=== PATIENT | male | born 1960 | race Caucasian/White ===

== ENCOUNTER → 2017-11-24 | Outpatient (REF) | payer OTHER ==
[2017-11-24 12:28] LABS: HEMATOCRIT 47.9 % (42.0-52.0); HEMOGLOBIN 15.9 g/dl (13.5-17.5); MEAN CORPUSCULAR HEMOGLOBIN 29.1 pg (27.0-33.0); MEAN CORPUSCULAR HGB CONC 33.2 g/dl (32.0-36.5); MEAN CORPUSCULAR VOLUME 87.6 fl (80.0-96.0); PLATELET COUNT, AUTOMATED 263 10^3/uL (150-450); RED BLOOD COUNT 5.47 10^6/uL (4.30-6.10); RED CELL DISTRIBUTION WIDTH 12.4 % (11.5-14.5); WHITE BLOOD COUNT 6.2 10^3/uL (4.0-10.0)
[2017-11-24 13:37] LABS: ALBUMIN 4.1 GM/DL (3.2-5.2); ALBUMIN/GLOBULIN RATIO 1.41 (1.00-1.93); ALKALINE PHOSPHATASE 83 U/L (45-117); ALT/SGPT 20 U/L (12-78); ANION GAP 8 MEQ/L (8-16); AST/SGOT 10 U/L (7-37); BILIRUBIN,TOTAL 0.8 MG/DL (0.2-1.0); BLOOD UREA NITROGEN 13 MG/DL (7-18); CALCIUM LEVEL 9.5 MG/DL (8.5-10.1); CARBON DIOXIDE LEVEL 27 MEQ/L (21-32); CHLORIDE LEVEL 109 MEQ/L (98-107); CHOLESTEROL LEVEL 167 MG/DL (<200); CHOLESTEROL RISK RATIO 4.513 (<5); CREATININE FOR GFR 0.82 MG/DL (0.70-1.30); FREE T4 0.98 NG/DL (0.76-1.46); GLOMERULAR FILTRATION RATE > 60.0 (>56); GLUCOSE, FASTING 99 MG/DL (70-100); HDL CHOLESTEROL 37 MG/DL (>40); LDL CHOLESTEROL 98 MG/DL (<100); NON-HDL-C 130 MG/DL; POTASSIUM SERUM 4.3 MEQ/L (3.5-5.1); PSA SCREENING 6.75 NG/ML (< 4.0); SODIUM LEVEL 144 MEQ/L (136-145); TRIGLYCERIDES LEVEL 158 MG/DL (<150)
== END ==
LOC: M SFHCPLAZ 09:25
DX: Z13.220 Encounter for screening for lipoid disorders (principal); Z12.5 Encounter for screening for malignant neoplasm of prostate

== ENCOUNTER → 2017-12-05 | Outpatient (REF) | payer OTHER | LOC: M SMT 13:28 | DX: R97.20 Elevated prostate specific antigen [PSA] (principal) ==

== ENCOUNTER → 2018-10-17 | Outpatient (REF) | payer MEDICAID ==
[~2018-10-17] MED LIST: ATOR1TAB19 PO; CHLO125TA PO; LISI-538 PO
[2018-10-17 18:01] LABS: ALBUMIN 3.7 GM/DL (3.2-5.2); ALT/SGPT 26 U/L (12-78); BILIRUBIN,TOTAL 0.7 MG/DL (0.2-1.0); BLOOD UREA NITROGEN 10 MG/DL (7-18); CALCIUM LEVEL 9.2 MG/DL (8.5-10.1); CARBON DIOXIDE LEVEL 33 MEQ/L (21-32); CHLORIDE LEVEL 107 MEQ/L (98-107); CHOLESTEROL LEVEL 213 MG/DL (<200); CHOLESTEROL RISK RATIO 6.264 (<5); CREATININE FOR GFR 0.92 MG/DL (0.70-1.30); FREE T4 0.94 NG/DL (0.76-1.46); GLOMERULAR FILTRATION RATE > 60.0 (>56); GLUCOSE, FASTING 84 MG/DL (70-100); HDL CHOLESTEROL 34 MG/DL (>40); LDL CHOLESTEROL 126 MG/DL (<100); NON-HDL-C 179 MG/DL; POTASSIUM SERUM 4.1 MEQ/L (3.5-5.1); SODIUM LEVEL 142 MEQ/L (136-145); THYROID STIMULATING HORMONE 0.864 uIU/ML (0.358-3.740); TOTAL PROTEIN 6.8 GM/DL (6.4-8.2); TRIGLYCERIDES LEVEL 264 MG/DL (<150)
[2018-10-17 18:05] LABS: BASO # 0.1 10^3/uL (0.0-0.2); BASO % 1.1 % (0.0-1.0); EOS # 0.2 10^3/uL (0.0-0.50); EOS % 1.9 % (0.0-3.0); HEMATOCRIT 46.3 % (42.0-52.0); HEMOGLOBIN 14.9 g/dl (13.5-17.5); LYMPH # 2.6 10^3/uL (1.5-4.5); LYMPH % 31.3 % (24.0-44.0); MEAN CORPUSCULAR HEMOGLOBIN 28.7 pg (27.0-33.0); MEAN CORPUSCULAR HGB CONC 32.2 g/dl (32.0-36.5); MEAN CORPUSCULAR VOLUME 89.2 fl (80.0-96.0); MONO # 0.6 10^3/uL (0.0-0.8); MONO % 7.6 % (0.0-5.0); NEUTROPHILS # 4.7 10^3/uL (1.8-7.7); NEUTROPHILS % 57.6 % (36.0-66.0); PLATELET COUNT, AUTOMATED 281 10^3/uL (150-450); RED BLOOD COUNT 5.19 10^6/uL (4.30-6.10); WHITE BLOOD COUNT 8.2 10^3/uL (4.0-10.0)
[2018-10-17 18:37] LABS: HEMOGLOBIN A1c 5.6 %
[2018-10-19 14:50] LABS: PSA % FREE 16.4 % (.); PSA FREE 0.87 ng/mL; PSA TOTAL 5.3 ng/mL (0.0-4.0)
== END ==
LOC: M SFHCPLAZ 13:30
PROVIDERS: ATTEND Nurse Practitioner Family
DX: I10 Essential (primary) hypertension (principal); E78.5 Hyperlipidemia, unspecified; R97.20 Elevated prostate specific antigen [PSA]

== ENCOUNTER → 2018-11-27 | Outpatient (CLI) | payer OTHER ==
--- NOTE | 2018-11-27 10:16 | REP ---
REASON: Tobacco abuse. COMPARISON: None. As per the protocol, only lung window images were sent to the reading station for interpretation. There are no priors for comparison. Lung rose are hyperexpanded. Tiny scattered parenchymal bulla are seen bilaterally. A few asymmetric curvilinear bibasilar densities are noted. There are multiple incidental calcified granulomas bilaterally. There are no abnormal noncalcified nodules. There is evidence of early bibasilar cylindrical bronchiectasis. Grossly the mediastinum and pulmonary darnell are within normal limits. Calcified mediastinal and hilar lymph nodes are present. Grossly the imaged upper abdomen and imaged osseous structures are within normal limits. There are no pleural or pericardial effusions. IMPRESSION: 1. Lung RADS category I. As per the revised Fleischner Society criteria, yearly CT lung screening is recommended. 2. Emphysematous changes and other chronic changes as described above. Electronically Signed by Manuel Gallo DO 11/27/2018 02:36 P
== END ==
LOC: M RAD 08:59
PROVIDERS: ATTEND Nurse Practitioner Family
DX: Z12.2 Encounter for screening for malignant neoplasm of respiratory organs (principal); Z87.891 Personal history of nicotine dependence

== ENCOUNTER 2024-05-09 19:15 | Inpatient (IN) | payer MEDICAID, OTHER, SELFPAY ==
[~2024-05-09] VITALS: Ht 170.2 cm; Wt 65.5 kg
[~2024-05-09 19:15] MED LIST changes: -LISI-538 PO; +LISI20TA33 PO
[2024-05-09 19:55] LABS: BASO % 0.3 % (0.0-1.0); EOS % 0.1 % (0.0-3.0); HEMATOCRIT 46.8 % (42.0-52.0); HEMOGLOBIN 15.5 g/dl (13.5-17.5); LYMPH # 1.6 10^3/uL (1.5-5.0); LYMPH % 11.4 % (24.0-44.0); MEAN CORPUSCULAR HEMOGLOBIN 27.3 pg (27.0-33.0); MEAN CORPUSCULAR HGB CONC 33.1 g/dl (32.0-36.5); MEAN CORPUSCULAR VOLUME 82.4 fl (80.0-96.0); MONO % 6.8 % (2.0-8.0); NEUTROPHILS # 11.2 10^3/uL (1.5-8.5); NEUTROPHILS % 80.9 % (36.0-66.0); PLATELET COUNT, AUTOMATED 296 10^3/uL (150-450); RED BLOOD COUNT 5.68 10^6/uL (4.30-6.10); WHITE BLOOD COUNT 13.9 10^3/uL (4.0-10.0)
[2024-05-09 20:08] LABS: ALKALINE PHOSPHATASE 98 U/L (40-129); ALT/SGPT 19 U/L (7.0-40); AST/SGOT 12 U/L (<34); BILIRUBIN,DIRECT 0.4 MG/DL (<0.4); BILIRUBIN,TOTAL 1.5 MG/DL (0.3-1.2); BLOOD UREA NITROGEN 16 MG/DL (9-23); CALCIUM LEVEL 9.4 MG/DL (8.3-10.6); CARBON DIOXIDE LEVEL 27 MMOL/L (20-31); CHLORIDE LEVEL 102 MMOL/L (98-107); CREATININE FOR GFR 0.98 MG/DL (0.70-1.30); GLOMERULAR FILTRATION RATE > 60.0 (>49); GLUCOSE, FASTING 122 MG/DL (74-106); POTASSIUM SERUM 3.7 MMOL/L (3.5-5.1); SODIUM LEVEL 140 MMOL/L (136-145); TOTAL PROTEIN 7.4 G/DL (5.7-8.2)
[2024-05-09 20:10] LABS: THYROID STIMULATING HORMONE 0.603 uIU/ML (0.55-4.78)
[2024-05-09] MEDS: MIDAZOLAM INJ 2MG/2ML VIAL IV STA (20:17)
[2024-05-09] MEDS: CEFEPIME HCL 2 GM in DEXTROSE 5% (D5W) ADV/MINI-BAG 50 ML IV ONE (20:28)
[2024-05-09 20:35] LABS: PROCALCITONIN 0.08 ng/ml
[2024-05-09] MEDS: ACETAMINOPHEN *IV* 1,000 MG in IV 1 EA IV ONE (21:11)
[2024-05-09] MEDS: hydrALAZINE 20MG/ML 1ML VIAL IV STA (21:25)
[2024-05-09] MEDS ORDERED: HOME MED LIST COMPLETE! XX SCH (21:35)
[2024-05-10] MEDS: hydrALAZINE 20MG/ML 1ML VIAL IV STA (01:02)
[2024-05-10] MEDS: MIDAZOLAM 5MG/ML 1ML VIAL IV ONE (01:18)
[2024-05-10] MEDS: MIDAZOLAM INJ 2MG/2ML VIAL IV ONE ×2 (01:28→01:50)
[2024-05-10] MEDS ORDERED: MIDAZOLAM INJ 2MG/2ML VIAL IV ONE (01:40)
[2024-05-10] MEDS ORDERED: propofoL 200 MG/20 ML VIAL IV ONE (01:45)
[2024-05-10] MEDS: propofoL 200 MG/20 ML VIAL IV ONE (01:47)
[2024-05-10 02:53] LABS: KETONE, URINE AUTO RFX NEGATIVE (NEGATIVE); LEUKOCYTE ESTERASE UR AUTO RFX NEGATIVE (NEGATIVE); MUCUS, URINE RFX MODERATE (NEGATIVE); NITRITE, URINE AUTO RFX NEGATIVE (NEGATIVE); RBC, URINE AUTO RFX 53 /HPF (0-3); SQUAM EPITHELIAL CELL UR AURFX 0 /HPF (0-6); TRANSITIONAL EPITHELIAL AU RFX <1 /HPF; WBC, URINE AUTO RFX 5 /HPF (0-3)
[2024-05-10 02:57] LABS: COLOR, CSF PINK (COLORLESS); CSF TUBE# CELL CNT TUBE 1
[2024-05-10 02:58] LABS: APPEARANCE, CSF HAZY (CLEAR)
[2024-05-10 02:59] LABS: APPEARANCE, CSF CLEAR (CLEAR); COLOR, CSF COLORLESS (COLORLESS); CSF TUBE# CELL CNT TUBE 4
[2024-05-10 03:05] LABS: TOTAL PROTEIN,CSF 61.5 MG/DL (15-45)
[2024-05-10 03:24] LABS: CSF TUBE# GLU TUBE 3
[2024-05-10 03:25] LABS: CSF TUBE# TP TUBE 3
[2024-05-10] MEDS ORDERED: FLUID PLACE HOLDER IV SCH (04:05)
[2024-05-10] MEDS ORDERED: FLUID PLACE HOLDER IV ONE (04:05)
[2024-05-10] MEDS ORDERED: MOM 30ML SUSPENSION UDC PO PRN (04:05)
[2024-05-10] MEDS ORDERED: ACYCLOVIR IV SCH (04:05)
[2024-05-10] MEDS ORDERED: VANCOMYCIN HCL IV ONE (04:05)
[2024-05-10] MEDS ORDERED: MEROPENEM INJ 2 GM in NS 100 ML IV SCH (04:05)
[2024-05-10] MEDS: VANCOMYCIN HCL 1,250 MG, VIAL MATE ADAPTER 1 EACH in NS 250 ML IV ONE (05:37)
[2024-05-10] MEDS: dexAMETHasone 20MG/5ML VIAL IV STA (05:37)
[2024-05-10 06:15] LABS: VENOUS BASE EXCESS -1.3 (-2.0-2.0); VENOUS HCO3 22.3 MMOL/L (23.0-27.0); VENOUS O2 SATURATION 87.9 % (60.0-80.0); VENOUS PARTIAL PRESSURE CO2 34.5 mmHg (38.0-50.0); VENOUS PH 7.428 UNITS (7.330-7.430); VENOUS STANDARD HCO3 23.2 MMOL/L; VENOUS TOTAL CO2 23.3 MMOL/L (24.0-28.0)
[2024-05-10 06:26] LABS: HEMATOCRIT 46.4 % (42.0-52.0); HEMOGLOBIN 15.5 g/dl (13.5-17.5); MEAN CORPUSCULAR HEMOGLOBIN 27.8 pg (27.0-33.0); MEAN CORPUSCULAR HGB CONC 33.4 g/dl (32.0-36.5); MEAN CORPUSCULAR VOLUME 83.2 fl (80.0-96.0); PLATELET COUNT, AUTOMATED 256 10^3/uL (150-450); RED BLOOD COUNT 5.58 10^6/uL (4.30-6.10); WHITE BLOOD COUNT 14.8 10^3/uL (4.0-10.0)
[2024-05-10 06:47] LABS: C REACTIVE PROTEIN QUANTITATIV 1.27 MG/DL (<1.0)
[2024-05-10 06:48] LABS: ALKALINE PHOSPHATASE 94 U/L (40-129); ALT/SGPT 19 U/L (7.0-40); AST/SGOT 16 U/L (<34); BILIRUBIN,TOTAL 1.9 MG/DL (0.3-1.2); BLOOD UREA NITROGEN 15 MG/DL (9-23); CALCIUM LEVEL 9.1 MG/DL (8.3-10.6); CARBON DIOXIDE LEVEL 24 MMOL/L (20-31); CHLORIDE LEVEL 103 MMOL/L (98-107); GLOMERULAR FILTRATION RATE > 60.0 (>49); GLUCOSE, FASTING 114 MG/DL (74-106); POTASSIUM SERUM 3.8 MMOL/L (3.5-5.1); SODIUM LEVEL 139 MMOL/L (136-145); TOTAL PROTEIN 7.3 G/DL (5.7-8.2)
[2024-05-10 08:32] LABS: ERYTHROCYTE SEDIMENTATION RATE 17 mm/hr (0-20)
[2024-05-10] MEDS: LORazepam 2 MG/ML 1ML VIAL IV STA (08:44)
[2024-05-10 08:55] VITALS: BP 188/86; TEMP 100.3; O2SAT 96
[2024-05-10] MEDS: ENOXAPARIN 40MG/0.4ML SYRINGE (J1650 PER 10MG) SC SCH (09:04)
[2024-05-10] MEDS: MEROPENEM INJ 1 GM in IV 1 EA IV SCH ×2 (09:05→10:18)
[2024-05-10] MEDS: hydrALAZINE 20MG/ML 1ML VIAL IV PRN (10:18)
[2024-05-10] MEDS ORDERED: ISOVUE-370 76% 100ML VIAL As Ordered ONE (11:09)
[2024-05-10] MEDS: ACYCLOVIR IV SCH (11:39)
[2024-05-10] MEDS: NS IV SCH (11:39)
[2024-05-10 11:46] VITALS: BP 158/72; TEMP 100.1; O2SAT 93
[2024-05-10 12:59] LABS: AMPHETAMINES LEVEL URINE NEGATIVE (NEGATIVE); BARBITURATES URINE NEGATIVE (NEGATIVE); CANNABINOIDS URINE NEGATIVE (NEGATIVE); COCAINE METABOLITE URINE NEGATIVE (NEGATIVE); METHADONE URINE NEGATIVE (NEGATIVE); OPIATES URINE NEGATIVE (NEGATIVE); PHENCYCLIDINE URINE NEGATIVE (NEGATIVE)
[2024-05-10 13:00] LABS: BENZODIAZEPINES URINE POSITIVE (NEGATIVE)
[2024-05-10] MEDS: dexAMETHasone 20MG/5ML VIAL IV SCH (13:09)
[2024-05-10 15:29] VITALS: BP 160/78; TEMP 99.9; O2SAT 94
[2024-05-10 16:29] LABS: HEPATITIS B SURFACE ANTIBODY NEGATIVE (POSITIVE)
[2024-05-10 16:42] LABS: HEPATITIS B SURFACE ANTIGEN NEGATIVE (NEGATIVE)
[2024-05-10 16:55] LABS: HIV 1&2 SCREEN NEGATIVE (NEGATIVE)
[2024-05-10] MEDS ORDERED: VANCOMYCIN HCL 1,000 MG, VIAL MATE ADAPTER 1 EACH in NS 250 ML IV SCH (17:00)
[2024-05-10 17:02] LABS: HEPATITIS C VIRUS ABY INDEX 0.02 INDEX (<0.8)
[2024-05-10] MEDS: ACETAMINOPHEN 325 MG TAB PO PRN (17:14)
[2024-05-10] MEDS: amLODIPine 5 MG TAB PO ONE (17:15)
[2024-05-10] MEDS: NS (Normal Saline) 0.9% 1,000 ML IV SCH (18:35)
[2024-05-10 20:00] VITALS: BP 160/59; TEMP 99.7; O2SAT 91
[2024-05-10 23:35] VITALS: BP 145/65; TEMP 99.1; O2SAT 90
[2024-05-11 04:00] VITALS: BP 176/87; TEMP 97.7; O2SAT 93
[2024-05-11 06:27] LABS: BASO % 0.1 % (0.0-1.0); HEMATOCRIT 42.6 % (42.0-52.0); HEMOGLOBIN 14.3 g/dl (13.5-17.5); LYMPH # 1.3 10^3/uL (1.5-5.0); LYMPH % 8.2 % (24.0-44.0); MEAN CORPUSCULAR HEMOGLOBIN 27.6 pg (27.0-33.0); MEAN CORPUSCULAR HGB CONC 33.6 g/dl (32.0-36.5); MEAN CORPUSCULAR VOLUME 82.1 fl (80.0-96.0); MONO # 0.6 10^3/uL (0.0-0.8); MONO % 3.9 % (2.0-8.0); NEUTROPHILS # 14.2 10^3/uL (1.5-8.5); PLATELET COUNT, AUTOMATED 257 10^3/uL (150-450); RED BLOOD COUNT 5.19 10^6/uL (4.30-6.10); WHITE BLOOD COUNT 16.3 10^3/uL (4.0-10.0)
[2024-05-11 07:09] LABS: BLOOD UREA NITROGEN 26 MG/DL (9-23); CALCIUM LEVEL 8.8 MG/DL (8.3-10.6); CARBON DIOXIDE LEVEL 24 MMOL/L (20-31); CHLORIDE LEVEL 106 MMOL/L (98-107); CREATININE FOR GFR 0.82 MG/DL (0.70-1.30); GLOMERULAR FILTRATION RATE > 60.0 (>49); GLUCOSE, FASTING 133 MG/DL (74-106); POTASSIUM SERUM 3.6 MMOL/L (3.5-5.1); SODIUM LEVEL 141 MMOL/L (136-145)
[2024-05-11 08:00] VITALS: BP 186/86; TEMP 98.6; O2SAT 96
[2024-05-11] MEDS: amLODIPine 5 MG TAB PO SCH (09:08)
[2024-05-11] MEDS ORDERED: PROHANCE 279.3MG/ML 15ML VIAL As Ordered ONE (10:39)
[2024-05-11 11:44] VITALS: BP 160/80; TEMP 99.6; O2SAT 96
[2024-05-11] MEDS: CHLORTHALIDONE 25 MG TAB PO ONE (12:24)
[2024-05-11] MEDS ORDERED: LORazepam 2 MG/ML 1ML VIAL IV PRN (13:10)
[2024-05-11 15:46] VITALS: BP 160/84; TEMP 99.6; O2SAT 96
[2024-05-11 20:00] VITALS: BP 125/60; TEMP 98.4; O2SAT 93
[2024-05-11 23:45] VITALS: BP 139/58; TEMP 97.9; O2SAT 92
[2024-05-12 04:25] VITALS: BP 196/97; TEMP 97.6; O2SAT 87
[2024-05-12 05:24] VITALS: BP 121/50
[2024-05-12 06:17] LABS: BASO % 0.1 % (0.0-1.0); HEMATOCRIT 44.9 % (42.0-52.0); HEMOGLOBIN 15.2 g/dl (13.5-17.5); LYMPH # 1.1 10^3/uL (1.5-5.0); LYMPH % 5.3 % (24.0-44.0); MEAN CORPUSCULAR HEMOGLOBIN 27.8 pg (27.0-33.0); MEAN CORPUSCULAR HGB CONC 33.9 g/dl (32.0-36.5); MEAN CORPUSCULAR VOLUME 82.2 fl (80.0-96.0); MONO # 0.9 10^3/uL (0.0-0.8); MONO % 4.5 % (2.0-8.0); PLATELET COUNT, AUTOMATED 293 10^3/uL (150-450); RED BLOOD COUNT 5.46 10^6/uL (4.30-6.10); WHITE BLOOD COUNT 20.2 10^3/uL (4.0-10.0)
[2024-05-12 06:45] LABS: BLOOD UREA NITROGEN 26 MG/DL (9-23); CARBON DIOXIDE LEVEL 24 MMOL/L (20-31); CHLORIDE LEVEL 102 MMOL/L (98-107); CREATININE FOR GFR 0.73 MG/DL (0.70-1.30); GLOMERULAR FILTRATION RATE > 60.0 (>49); GLUCOSE, FASTING 124 MG/DL (74-106); POTASSIUM SERUM 3.4 MMOL/L (3.5-5.1); SODIUM LEVEL 139 MMOL/L (136-145)
[2024-05-12 07:34] VITALS: BP 162/80; TEMP 97.6; O2SAT 92
[2024-05-12] MEDS: CHLORTHALIDONE 25 MG TAB PO SCH (08:31)
[2024-05-12] MEDS: POTASSIUM CHLORIDE 10MEQ SR TABLET PO ONE (09:06)
[2024-05-12 12:45] VITALS: BP 152/63
[2024-05-12 16:00] VITALS: BP 164/80; TEMP 97.6; O2SAT 96
[2024-05-12 19:35] VITALS: BP 171/94; TEMP 98; O2SAT 94
[2024-05-13 00:45] VITALS: BP 152/63
[2024-05-13 03:04] VITALS: BP 168/90; TEMP 97.6; O2SAT 95
[2024-05-13] MEDS: hydrALAZINE 20MG/ML 1ML VIAL IV ONE (05:26)
[2024-05-13 05:45] VITALS: BP 148/86
[2024-05-13 05:53] LABS: BASO % 0.2 % (0.0-1.0); EOS % 0.1 % (0.0-3.0); HEMATOCRIT 47.6 % (42.0-52.0); LYMPH # 3.9 10^3/uL (1.5-5.0); LYMPH % 19.8 % (24.0-44.0); MEAN CORPUSCULAR HEMOGLOBIN 27.8 pg (27.0-33.0); MEAN CORPUSCULAR HGB CONC 33.6 g/dl (32.0-36.5); MEAN CORPUSCULAR VOLUME 82.6 fl (80.0-96.0); MONO # 1.7 10^3/uL (0.0-0.8); MONO % 8.5 % (2.0-8.0); NEUTROPHILS # 13.9 10^3/uL (1.5-8.5); NEUTROPHILS % 70.7 % (36.0-66.0); PLATELET COUNT, AUTOMATED 325 10^3/uL (150-450); RED BLOOD COUNT 5.76 10^6/uL (4.30-6.10); WHITE BLOOD COUNT 19.6 10^3/uL (4.0-10.0)
[2024-05-13 06:19] LABS: BLOOD UREA NITROGEN 34 MG/DL (9-23); CALCIUM LEVEL 9.3 MG/DL (8.3-10.6); CARBON DIOXIDE LEVEL 28 MMOL/L (20-31); CHLORIDE LEVEL 102 MMOL/L (98-107); GLOMERULAR FILTRATION RATE > 60.0 (>49); GLUCOSE, FASTING 91 MG/DL (74-106); POTASSIUM SERUM 3.5 MMOL/L (3.5-5.1); SODIUM LEVEL 140 MMOL/L (136-145)
[2024-05-13 07:51] VITALS: BP 157/81; TEMP 97.9; O2SAT 94
[2024-05-13 08:27] VITALS: BP 157/81
[2024-05-13] MEDS: LOSARTAN 25 MG TAB PO SCH (08:27)
[2024-05-13 11:52] LABS: PROCALCITONIN 0.07 ng/ml
[2024-05-13 15:51] VITALS: BP 135/70; TEMP 97.8; O2SAT 94
[2024-05-13] MEDS ORDERED: CHLO25TA PO (16:12)
[2024-05-13] MEDS ORDERED: NORV5TAB PO (16:13)
[2024-05-13] MEDS ORDERED: LOSA50TA28 PO (16:13)
== END 2024-05-13 17:15 | disposition home or self-care (01) | DRG 49 ==
LOC: EDBD 19:15 → M ED 19:15 → M ED INP 05-10 04:03 → M PCU 05-10 08:39 → M ED INP 05-12 07:53 → M PCU 05-12 08:13
PROVIDERS: ADMIT Internal Medicine; ATTEND Internal Medicine
DX: G04.2 Bacterial meningoencephalitis and meningomyelitis, not elsewhere classified (principal); G93.41 Metabolic encephalopathy; J18.9 Pneumonia, unspecified organism; J44.0 Chronic obstructive pulmonary disease with (acute) lower respiratory infection; R13.10 Dysphagia, unspecified; N28.1 Cyst of kidney, acquired; I10 Essential (primary) hypertension; E78.5 Hyperlipidemia, unspecified; F17.200 Nicotine dependence, unspecified, uncomplicated; I16.9 Hypertensive crisis, unspecified; Z90.49 Acquired absence of other specified parts of digestive tract; Z88.0 Allergy status to penicillin

== ENCOUNTER → 2024-05-27 | Outpatient (REF) | payer MEDICAID ==
[~2024-05-27] MED LIST changes: +CHLO25TA PO; +LOSA50TA28 PO; +NORV5TAB PO
[2024-05-27 18:10] LABS: BLOOD UREA NITROGEN 16 MG/DL (9-23); CALCIUM LEVEL 9.3 MG/DL (8.3-10.6); CARBON DIOXIDE LEVEL 33 MMOL/L (20-31); CHLORIDE LEVEL 98 MMOL/L (98-107); CREATININE FOR GFR 0.97 MG/DL (0.70-1.30); GLOMERULAR FILTRATION RATE > 60.0 (>49); GLUCOSE, FASTING 86 MG/DL (74-106); POTASSIUM SERUM 3.4 MMOL/L (3.5-5.1); SODIUM LEVEL 139 MMOL/L (136-145)
[2024-05-27 18:56] LABS: CREATININE, URINE 263.2 MG/DL; MAU/CREAT RATIO 6.4 MCG/MG (0.0-30.0)
[2024-05-27 19:06] LABS: APPEARANCE, URINE TURBID (CLEAR); BACTERIA, URINE AUTO 3+ (NEGATIVE); BILIRUBIN, URINE AUTO NEGATIVE (NEGATIVE); BLOOD, URINE BLOOD NEGATIVE (NEGATIVE); COLOR, URINE AMBER (YELLOW); GLUCOSE, URINE (UA) AUTO NEGATIVE (NEGATIVE); KETONE, URINE AUTO NEGATIVE (NEGATIVE); LEUKOCYTE ESTERASE, URINE AUTO TRACE (NEGATIVE); MUCUS, URINE LARGE (NEGATIVE); NITRITE, URINE AUTO NEGATIVE (NEGATIVE); PROTEIN, URINE AUTO NEGATIVE (NEGATIVE); RBC, URINE AUTO 2 /HPF (0-3); SPECIFIC GRAVITY URINE AUTO 1.017 (1.002-1.035); SQUAMOUS EPITHELIAL CELL UR AU 0 /HPF (0-6); WBC, URINE AUTO 6 /HPF (0-3)
== END ==
LOC: M LAB REF 17:16
PROVIDERS: ATTEND Pediatrics
DX: R31.29 Other microscopic hematuria (principal); I10 Essential (primary) hypertension

== ENCOUNTER → 2024-09-11 | Outpatient (REF) | payer MEDICAID, OTHER ==
[2024-09-11 14:04] LABS: BACTERIA, URINE AUTO NEGATIVE (NEGATIVE); MUCUS, URINE SMALL (NEGATIVE); RBC, URINE AUTO 1 /HPF (0-3); SQUAMOUS EPITHELIAL CELL UR AU 0 /HPF (0-6); WBC, URINE AUTO 1 /HPF (0-3)
[2024-09-11 14:49] LABS: PSA SCREENING 11.02 NG/ML (< 4.00)
[2024-09-11 14:50] LABS: CALCIUM LEVEL 9.5 MG/DL (8.3-10.6); CARBON DIOXIDE LEVEL 33 MMOL/L (20-31); CHLORIDE LEVEL 99 MMOL/L (98-107); CHOLESTEROL LEVEL 157 MG/DL (<200); CHOLESTEROL RISK RATIO 4.55 (<5); CREATININE FOR GFR 0.96 MG/DL (0.70-1.30); GLOMERULAR FILTRATION RATE 87.7 (>49); LDL CHOLESTEROL 77.9 MG/DL (<100); NON-HDL-C 122.5 MG/DL; POTASSIUM SERUM 3.3 MMOL/L (3.5-5.1); SODIUM LEVEL 141 MMOL/L (136-145); TRIGLYCERIDES LEVEL 223 MG/DL (<150)
[2024-09-11 15:26] LABS: HEPATITIS C VIRUS ABY INDEX < 0.02 INDEX (<0.8)
== END ==
LOC: M LAB REF 11:43
PROVIDERS: ATTEND Pediatrics
DX: R31.29 Other microscopic hematuria (principal); I10 Essential (primary) hypertension; Z12.5 Encounter for screening for malignant neoplasm of prostate; Z11.59 Encounter for screening for other viral diseases; E78.5 Hyperlipidemia, unspecified

== ENCOUNTER → 2024-09-25 | Outpatient (REF) | payer OTHER | LOC: M LAB REF 16:24 | PROVIDERS: ATTEND Pediatrics | DX: R97.20 Elevated prostate specific antigen [PSA] (principal) ==